=== PATIENT | female | born 1995 | race Caucasian/White ===

== ENCOUNTER 2024-08-10 11:01 | Outpatient (CLI) | payer BC, SELFPAY ==
--- NOTE | ~2024-08-10 | US_ITS ---
EXAMINATION: US venous doppler [facility] DATE: 08/10/2024 11:36 INDICATION: Lower limb swelling TECHNIQUE: Grayscale ultrasound images without and with compression and Doppler ultrasound images of the bilateral lower extremity veins were obtained. COMPARISON: None. FINDINGS: The visualized portions of right common femoral vein, profunda (deep) femoral vein, femoral vein, pop liteal vein, posterior tibial veins, peroneal veins, gastrocnemius vein and greater saphenous vein ou tflow are patent. The visualized portions of left common femoral vein, profunda femoral vein, femoral vein, popliteal v ein, posterior tibial veins, peroneal veins, gastrocnemius vein and greater saphenous vein outflow ar e patent. IMPRESSION: 1. No deep venous thrombosis in either lower limb. Reviewed, dictated and finalized at location [facility]
== END 2024-08-10 11:02 | disposition home or self-care (01) ==
LOC: MICIMG 11:01
PROVIDERS: PCP Family Medicine; Visit Provider Family Medicine
DX: M79.89 Other specified soft tissue disorders (principal)
CPT/HCPCS: 93970